=== PATIENT | male | born 1930 | race Caucasian/White ===

== ENCOUNTER 2016-11-28 16:24 | Emergency (ER) | payer OTHER, BC ==
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
[~2016-11-28 16:24] MED LIST: ALLERGY MED; ANTIVERT PO; ASPIRIN; ASPIRIN PO; ASPIRIN1 GM; ASPIRIN81 M1 PO; ASPIRIN81 M2 PO; AVAPRO PO; CLARITIN10 M2 PO; CLARITIN10 MG PO; CLARITIN5 MG; CLEOCIN150 M1 PO; DYAZIDE 37.5/251 CAP PO; FISH OIL 1,0001 CAP PO; HTN MED; KCL PO; LIPITOR40 MG PO; LOPRESSOR PO; LOSARTAN POTAS100 MG PO; METFORMIN HCL500 M1 PO; METOPROLOL TAR25 MG PO; MICRO-K; MULTI-VITAMIN1 TAB; NORVASC PO; ONE DAILY MULTI1 TA3 PO; OSTEO BI-FLEX1 EAC3 PO; PLAVIX PO; PRILOSEC20 MG PO
[2016-11-28] MEDS ORDERED: FLEXERIL10 MG PO (18:08)
== END 2016-11-28 18:16 | disposition home or self-care (01) ==
LOC: SED 16:24
DX: S13.4XXA Sprain of ligaments of cervical spine, initial encounter (principal); S20.219A Contusion of unspecified front wall of thorax, initial encounter; Z98.890 Other specified postprocedural states; Z88.0 Allergy status to penicillin; Z88.2 Allergy status to sulfonamides; Z79.899 Other long term (current) drug therapy; V43.52XA Car driver injured in collision with other type car in traffic accident, initial encounter; Y93.89 Activity, other specified; Y92.410 Unspecified street and highway as the place of occurrence of the external cause
CPT/HCPCS: 71020; 72040; 99284

== ENCOUNTER 2017-03-25 11:44 | Emergency (ER) | payer MEDICARE, BC ==
--- NOTE | ~2017-03-25 | CR142 ---
[facility]. [facility] A Service of [facility] & [facility] RADIOLOGY TEXT RESULTS PATIENT: SOBEIDA DURAN LOCATION: SED : 30 UNIT #: [id number] AGE: [address]: Aurelia Lyon MD SEX: M ORDER DR: [id number] [address] [address] [id number] E MR#: [id number] Acc #: [id number] NAME: SOBEDIA DURAN : 1930 SEX: M STUDY DATE/TIME: 03/25/2017 12:06 UNIT: SED ROOM: STUDY DESCRIPTION: CR Hand Min 3 Views Rt Attending Physician: Aurelia Lyon M.D. Ordering Physician: Aurelia Lyon M.D. Primary Care Physician: Wei Wilson M.D. MEDICAL IMAGING REPORT This report is preliminary unless electronic signature is present. EXAM 3 views of the right hand DATE 03/25/2017 HISTORY 86-year-old male who fell today with cut on his fourth finger and hand pain. COMPARISON None. FINDINGS There is mild cortical irregularity along the radial surface of the top of the distal phalanx of the right fourth finger. This may simply represent superimposition artifact from overlying osteophyte formation. Nondisplaced tuft fracture cannot be excluded. Correlate to site of pain. Remainder of the right hand demonstrates no acute finding. No retained radiopaque foreign body. 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 Moderate narrowing of the radiocarpal joint. 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 Benign chronic well-corticated calcification is seen within the triangular fibrocartilage. IMPRESSION 1. Question of nondisplaced fracture of the tuft of the distal phalanx of the right fourth finger versus superimposition artifact from overlying osteophyte formation. Correlate to site of pain. [facility] A Service of [facility] & [facility] RADIOLOGY TEXT RESULTS PATIENT: SOBEIDA DURAN LOCATION: [facility] : 30 UNIT #: [id number] AGE: [address]: SonaliAurelia Roxanne VALLEJO SEX: M ORDER DR: 2. Otherwise, the remainder of the right hand demonstrates no acute finding. 3. 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 Dictated by... Josee May M.D. THIS IS AN ELECTRONICALLY VERIFIED REPORT Josee May M.D. at 03/26/2017 12:10 PM GABBY/kacey TD: 03/25/2017 15:09 JOB #: [id number] MEDICAL IMAGING REPORT Page 1 of 1
--- NOTE | ~2017-03-25 | CT52 ---
[facility] A Service of [facility] RADIOLOGY TEXT RESULTS PATIENT: SOBEIDA DURAN LOCATION: SED : 30 UNIT #: [id number] AGE: [address]: Aurelia Lyon MD SEX: M ORDER DR: [id number] [place] [id number] E MR#: [id number] Acc #: [id number] NAME: SOBEIDA DURAN : 1930 SEX: M STUDY DATE/TIME: 03/25/2017 12:04 UNIT: SED ROOM: STUDY DESCRIPTION: CT Cervical Spine Wo Cont Attending Physician: Aurelia Loyn M.D. Ordering Physician: Aurelia Lyon M.D. Primary Care Physician: Wei Wilson M.D. MEDICAL IMAGING REPORT This report is preliminary unless electronic signature is present. EXAM CT cervical spine INDICATIONS Neck pain status post fall. Fall in the garage. TECHNIQUE CT of the cervical spine without contrast. Coronal and sagittal reconstructions were obtained. This CT exam was performed with one or more of the following radiation dose reduction techniques: automatic exposure control, adjustment of mA and/or kV according to patient size, and iterative reconstruction. COMPARISON Cervical spine radiographs 11/28/2016 FINDINGS There is no acute fracture or subluxation. Vertebral body height and alignment is within normal limits. The craniocervical junction and atlantoaxial articulations are within normal limits. There is bulky anterior osteophytes of the vertebral body from C2-C7 compatible with diffuse idiopathic skeletal hyperostosis (DISH). There is multilevel degenerative changes of the cervical spine including a moderate sized disc osteophyte complex at C6-7. This results in a moderate central canal stenosis. IMPRESSION 1. No acute traumatic findings in the cervical spine. 2. Multilevel degenerative changes and diffuse idiopathic skeletal hyperostosis (DISH). Dictated by... [facility] A Service of [facility] RADIOLOGY TEXT RESULTS PATIENT: SOBEIDA DURAN LOCATION: SED : 30 UNIT #: [id number] AGE: [address]: Aurelia Lyon MD SEX: M ORDER DR: Jose A Bledsoe M.D. THIS IS AN ELECTRONICALLY VERIFIED REPORT Jose A Bledsoe M.D. at 03/25/2017 4:22 PM RPC/to TD: 03/25/2017 15:15 JOB #: [id number] MEDICAL IMAGING REPORT Page 1 of 1
--- NOTE | ~2017-03-25 | CR181 ---
[facility] A Service of [facility] RADIOLOGY TEXT RESULTS PATIENT: SOBEIDA DURAN LOCATION: SED : 30 UNIT #: [id number] AGE: [address]: Aurelia Lyon MD SEX: M ORDER DR: [id number] [place] [id number] E MR#: [id number] Acc #: [id number] NAME: SOBEIDA DURAN : 1930 SEX: M STUDY DATE/TIME: 03/25/2017 12:43 UNIT: SED ROOM: STUDY DESCRIPTION: CR Lumbar Spine 2 or 3 Views Attending Physician: Aurelia Lyon M.D. Ordering Physician: Aurelia Lyon M.D. Primary Care Physician: Wei Wilson M.D. MEDICAL IMAGING REPORT This report is preliminary unless electronic signature is present. EXAM Lumbar spine two-view series INDICATION Pain today after falling in garage. FINDINGS AP and lateral views of the lumbar spine were obtained. There are prominent lateral osteophyte formations throughout the lumbar spine. There is mild disc space narrowing at multiple levels. There is no fracture or subluxation. 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 No fracture or subluxation identified. Dictated by... Bry Vázquez M.D. THIS IS AN ELECTRONICALLY VERIFIED REPORT Bry Vázquez M.D. at 03/25/2017 8:15 PM MICHAEL/sánchez TD: 03/25/2017 15:36 JOB #: [id number] MEDICAL IMAGING REPORT Page 1 of 1
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
--- NOTE | ~2017-03-25 | CT71 ---
[facility] A Service of [facility] RADIOLOGY TEXT RESULTS PATIENT: SOBEIDA DURAN LOCATION: SED : 30 UNIT #: [id number] AGE: [address]: Aurelia Lyon MD SEX: M ORDER DR: [id number] [place] [id number] E MR#: [id number] Acc #: [id number] NAME: SOBEIDA DURAN : 1930 SEX: M STUDY DATE/TIME: 03/25/2017 11:55 UNIT: SED ROOM: STUDY DESCRIPTION: CT Head Wo Contrast Attending Physician: Aurelia Lyon M.D. Ordering Physician: Aurelia Lyon M.D. Primary Care Physician: Wei Wilson M.D. MEDICAL IMAGING REPORT This report is preliminary unless electronic signature is present. EXAM CT head INDICATION Fall x1 day. Fell in the garage. Scalp hematoma over the posterior head. Neck pain. TECHNIQUE CT of the head without contrast. This CT exam was performed with one or more of the following radiation dose reduction techniques: Automatic exposure control, adjustment of mA and/or kV according to patient size, and iterative reconstruction. COMPARISON CT head dated 06/30/2011. FINDINGS No acute intracranial hemorrhage, mass lesion, or acute infarct. There is generalized atrophy and chronic small vessel changes. There is mild ventriculomegaly, however, this is unchanged. No extra-axial collections. There is no acute osseous abnormalities. There is a scalp hematoma overlying the posterior aspect of the right parietal lobe. No foreign body. IMPRESSION 1. No acute intracranial findings. 2. Mild generalized atrophy. 3. Small scalp hematoma over the right parietal convexity. No underlying fracture or foreign body. [facility] A Service [facility] RADIOLOGY TEXT RESULTS PATIENT: SOBEIDA DURAN LOCATION: SED : 30 UNIT #: [id number] AGE: [address]: Aurelia Lyon MD SEX: M ORDER DR: Dictated by... Jose A Bledsoe M.D. THIS IS AN ELECTRONICALLY VERIFIED REPORT Jose A Bledsoe M.D. at 03/25/2017 4:22 PM RPC/tien TD: 03/25/2017 15:02 JOB #: [id number] MEDICAL IMAGING REPORT Page 1 of 1
[~2017-03-25 11:44] MED LIST changes: +FLEXERIL10 MG PO
== END 2017-03-25 13:59 | disposition home or self-care (01) ==
LOC: SED 11:44
DX: S06.0X9A Concussion with loss of consciousness of unspecified duration, initial encounter (principal); S60.221A Contusion of right hand, initial encounter; S50.01XA Contusion of right elbow, initial encounter; Z79.84 Long term (current) use of oral hypoglycemic drugs; Z79.82 Long term (current) use of aspirin; Z79.899 Other long term (current) drug therapy; Z88.0 Allergy status to penicillin; Z88.2 Allergy status to sulfonamides; W01.0XXA Fall on same level from slipping, tripping and stumbling without subsequent striking against object, initial encounter; Y92.009 Unspecified place in unspecified non-institutional (private) residence as the place of occurrence of the external cause
CPT/HCPCS: 70450; 72100; 72125; 73070; 73130; 99284